=== PATIENT | female | born 1995 | race Hispanic/Latino ===

== ENCOUNTER 2018-06-21 13:38 | Emergency (ER) | payer MEDICAID ==
[2018-06-21] MEDS ORDERED: HYDROCODONE/ACETAMINOPHEN 5/325 MG TAB ONE (14:05)
== END 2018-06-21 16:09 | disposition home or self-care (01) ==
LOC: EDH 13:38
DX: S00.83XA Contusion of other part of head, initial encounter (principal); S40.012A Contusion of left shoulder, initial encounter; S60.211A Contusion of right wrist, initial encounter; G70.00 Myasthenia gravis without (acute) exacerbation; Z72.0 Tobacco use; Z88.8 Allergy status to other drugs, medicaments and biological substances; Y04.0XXA Assault by unarmed brawl or fight, initial encounter; Y93.89 Activity, other specified; Y92.89 Other specified places as the place of occurrence of the external cause; Y99.8 Other external cause status
CPT/HCPCS: 70140; 73030; 73110; 81025